=== PATIENT | female | born 1965 | race Caucasian/White ===

== ENCOUNTER 2020-05-12 14:24 | Outpatient (CLI) | payer BC, SELFPAY ==
--- NOTE | 2020-05-12 14:53 | BD ---
EXAM: DEXA bone density examination HISTORY: 54-year-old female for screening COMPARISON: None FINDINGS: L1--bone mineral density 0.806 g/sq cm; T score -1.7 L2--bone mineral density 0.910 g/sq cm; T score -1.1 L3--bone mineral density 0.919 g/sq cm; T score -1.5 L4--bone mineral density 0.957 g/sq cm; T score -0.9 Total L1-L4--bone mineral density 0.901 g/sq cm; T score -1.3 Left femoral neck--bone mineral density0.545; T score -2.7 Total proximal left femur--bone mineral density 0.782; T score -1.3 WHO classification: Osteoporosis. IMPRESSION: Osteoporosis with elevated fracture risk.
== END 2020-05-12 14:25 | disposition home or self-care (01) ==
LOC: BICMAMMO 14:24
PROVIDERS: ATTEND Internal Medicine Rheumatology
DX: M81.0 Age-related osteoporosis without current pathological fracture (principal); M85.88 Other specified disorders of bone density and structure, other site
CPT/HCPCS: 77080

== ENCOUNTER 2021-07-09 08:14 | Outpatient (CLI) | payer BC | END 2021-07-09 08:15 | disposition home or self-care (01) | LOC: BICMAMMO 08:14 | PROVIDERS: ATTEND Internal Medicine Rheumatology | DX: M81.0 Age-related osteoporosis without current pathological fracture (principal); M85.88 Other specified disorders of bone density and structure, other site | CPT/HCPCS: 77080 ==

== ENCOUNTER 2022-08-10 15:02 | Outpatient (CLI) | payer BC | END 2022-08-10 15:03 | disposition home or self-care (01) | LOC: BICMAMMO 15:02 | PROVIDERS: ATTEND Internal Medicine Rheumatology | DX: M81.0 Age-related osteoporosis without current pathological fracture (principal); M85.88 Other specified disorders of bone density and structure, other site | CPT/HCPCS: 77080 ==